=== PATIENT | male | born 1975 | race African-American/Black ===

== ENCOUNTER 2019-09-29 09:43 | Emergency (ER) | payer MEDICAID ==
[2019-09-29] MEDS ORDERED: DIPHENHYDRAMINE 50 MG CAPSULE ONE (10:06)
[2019-09-29] MEDS ORDERED: DIPHENHYDRAMINE 25 MG CAPSULE PO ONE (10:30)
--- NOTE | 2019-09-29 10:31 | NUR ---
RN helping main RN to DC pt. Patient given discharge instructions and they have confirmed that they understand the instructions. Patient ambulatory with steady gait. Denies additional needs and all questions answered appropriately. Pt reiterated understanding to take prescribed meds, shower and use cream today. NAD, RESP WNL.
== END 2019-09-29 10:47 | disposition home or self-care (01) ==
LOC: ED 10:36
DX: L03.221 Cellulitis of neck (principal); L03.115 Cellulitis of right lower limb; L03.114 Cellulitis of left upper limb; L29.9 Pruritus, unspecified
CPT/HCPCS: 99283; Q0163

== ENCOUNTER 2019-10-01 23:46 | Emergency (ER) | payer MEDICAID ==
[~2019-10-01] VITALS: Ht 177.8 cm; Wt 116.0 kg
[2019-10-01 23:49] VITALS: BP 140/94
[2019-10-02] MEDS ORDERED: POLYTRIM OPHTH 10ML EACHEYE STA (00:03)
[2019-10-02] MEDS ORDERED: PERMETHRIN CRM 5%, 60GM ONE (00:21)
[2019-10-02] MEDS ORDERED: PERMETHRIN CRM 5%, 60GM TP SCH (00:30)
== END 2019-10-02 01:12 | disposition home or self-care (01) ==
LOC: ED 10-02 00:40
DX: H10.023 Other mucopurulent conjunctivitis, bilateral (principal); B86 Scabies; F17.210 Nicotine dependence, cigarettes, uncomplicated; Z59.0 Homelessness
CPT/HCPCS: 99283